=== PATIENT | female | born 1950 | race Caucasian/White ===

== ENCOUNTER 2020-05-04 15:20 | Outpatient (CLI) | payer MEDICARE, SELFPAY ==
--- NOTE | ~2020-05-04 | XR_ITS ---
XR finger 1st RT min 2V DATE: 05/04/2020 16:12 INDICATION: First digit pain and swelling for 3 weeks, worsening TECHNIQUE: 3 views COMPARISON: None FINDINGS: No fracture or dislocation, periosteal reaction or bone destruction. No radiographic soft t issue foreign body or subcutaneous emphysema. IMPRESSION: No significant abnormality Reviewed, dictated and finalized at location A. IMPRESSION: No significant abnormality
== END 2020-05-04 15:21 | disposition home or self-care (01) ==
LOC: CHSIMG 15:25
PROVIDERS: PCP Internal Medicine; Visit Provider Physician Assistant
DX: M79.644 Pain in right finger(s) (principal)
CPT/HCPCS: 73140

== ENCOUNTER 2020-08-13 08:06 | Outpatient (CLI) | payer MEDICARE, SELFPAY ==
--- NOTE | ~2020-08-13 | XR_ITS ---
XR humerus RT DATE: 08/13/2020 08:37 INDICATION: Right arm pain, limited range of motion TECHNIQUE: AP and lateral views COMPARISON: None FINDINGS: There is mild osteoarthritis at the right glenohumeral joint. No fracture or dislocation, periosteal reaction or bone destruction is detected. IMPRESSION: Mild right glenohumeral osteoarthritis Reviewed, dictated and finalized at location A.
--- NOTE | ~2020-08-13 | XR_ITS ---
XR shoulder RT min 2V DATE: 08/13/2020 08:37 INDICATION: Right shoulder pain TECHNIQUE: 5 views COMPARISON: 04/10/2014 right shoulder FINDINGS: Normal alignment at the abdomen clinical information glenohumeral joints. The acromioclavicular joint appears normal. There is mild spurring at the right glenohumeral joint consistent with mild osteoarthritis. No fracture, dislocation, periosteal reaction or bone destruction or abnormal soft tissue calcificati on of the right shoulder. IMPRESSION: Mild glenohumeral osteoarthritis Reviewed, dictated and finalized at location A.
== END 2020-08-13 08:07 | disposition home or self-care (01) ==
LOC: CHSIMG 08:08
PROVIDERS: PCP Internal Medicine; Visit Provider Orthopaedic Surgery
DX: M79.601 Pain in right arm (principal); M25.511 Pain in right shoulder
CPT/HCPCS: 73030; 73060

== ENCOUNTER 2020-12-28 14:11 | Outpatient (CLI) | payer MEDICARE, SELFPAY ==
--- NOTE | ~2020-12-28 | XR_ITS ---
XR hand RT min 3V 12/28/2020 15:57 Indication: Right hand pain Procedure: 3 views right hand Comparison: 04/10/2014 Findings: Osteopenia. Mild osteoarthritis of the first CMC, triscaphe and MCP joints. Mild degenerati ve change of the second MCP joint. No fracture, subluxation or dislocation. No focal soft tissue abno rmality. No foreign bodies. Impression: 1: Mild polyarticular osteoarthritis. Reviewed, dictated and finalized at location A. 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
== END 2020-12-28 14:12 | disposition home or self-care (01) ==
LOC: CHSIMG 14:14
PROVIDERS: PCP Internal Medicine; Visit Provider Internal Medicine
DX: M79.641 Pain in right hand (principal)
CPT/HCPCS: 73130

== ENCOUNTER 2022-04-16 12:47 | Outpatient (CLI) | payer MEDICARE, SELFPAY ==
--- NOTE | ~2022-04-16 | MM_ITS ---
EXAMINATION: MM screening [facility] BI w [place] HISTORY: Screening TECHNIQUE: Craniocaudal and mediolateral oblique 3-D tomosynthesis images were obtained and synthetic 2-D images were generated. CAD analysis was submitted and interpreted. COMPARISON: Comparison to multiple prior studies sequentially, with oldest reviewed study dated 02/2014. BREAST PARENCHYMAL COMPOSITION: There are scattered areas of fibroglandular density. FINDINGS: There is no evidence of suspicious mass, calcification, or architectural distortion to sugg est malignancy in either breast. There has been no suspicious interval change. IMPRESSION: 1. No mammographic evidence of malignancy. 2. Recommend routine screening mammography in one year. BI-RADS Category 1: Negative Reviewed, dictated and finalized at location A.
== END 2022-04-16 12:48 | disposition home or self-care (01) ==
LOC: CHSIMG 12:49
PROVIDERS: PCP Internal Medicine; Visit Provider Internal Medicine
DX: Z12.31 Encounter for screening mammogram for malignant neoplasm of breast (principal)
CPT/HCPCS: 77063; 77067

== ENCOUNTER 2024-08-24 11:53 | Outpatient (CLI) | payer MEDICARE, SELFPAY ==
--- NOTE | ~2024-08-24 | MM_ITS ---
EXAMINATION: MM screening [facility] w [place] HISTORY: Screening TECHNIQUE: Craniocaudal and mediolateral oblique 3-D tomosynthesis images were obtained and synthetic 2-D images were generated. CAD analysis was submitted and interpreted. COMPARISON: Comparison to multiple prior studies sequentially, with oldest reviewed study dated 06/30. BREAST PARENCHYMAL COMPOSITION: Not Dense: The breasts are almost entirely fatty. FINDINGS: There is no evidence of suspicious mass, calcification, or architectural distortion to sugg est malignancy in either breast. There has been no suspicious interval change. IMPRESSION: 1. No mammographic evidence of malignancy. 2. Recommend routine screening mammography in one year. BI-RADS Category 1: Negative Reviewed, dictated and finalized at location B. 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
== END 2024-08-24 11:54 | disposition home or self-care (01) ==
PROVIDERS: PCP Internal Medicine; Visit Provider Internal Medicine
DX: Z12.31 Encounter for screening mammogram for malignant neoplasm of breast (principal)
CPT/HCPCS: 77063; 77067

== ENCOUNTER 2024-11-10 00:48 | Day surgery (SDC) | payer MEDICARE, SELFPAY ==
[2024-10-31 16:04] VITALS: BMI 26.6
--- NOTE | 2024-11-09 15:32 | WPDANESEPPF ---
Anes - Initial Pre Proc Eval Procedure: Operation Date: 11/10/24 12:30 Proposed Procedures p Colonoscopy - Oli Nicolas MD Date/Time: 11/09/24 15:32 Surgeon: Oli Nicolas MD Pre Op Diagnosis: fecal abnormalities Patient Data Age: 74 Gender: F Height: 1.6 m Weight: 68.2 kg Allergies Allergy/AdvReac Type Severity Reaction Status Date / Time risedronate sodium AdvReac Severe flu like Verified 11/10/24 10:49 symptoms Home Medications ?Medication ?Instructions ?Recorded ?Confirmed ?Type calcium carbonate (Calcium 500) 500 mg PO DAILY 08/30/19 10/31/24 History cetirizine 10 mg tablet (Zyrtec) 10 mg PO DAILY 08/30/19 11/10/24 History naproxen 250 mg tablet 250 mg PO BID PRN pain 08/13/20 10/31/24 History fluticasone propionate 50 1 spray intranasal DAILY 04/29/23 11/10/24 History mcg/actuation nasal spray,suspension (Flonase Allergy Relief) atorvastatin 20 mg tablet 20 mg PO DAILY #90 tabs 04/25/24 11/10/24 Rx irbesartan 150 mg tablet 150 mg PO DAILY #90 tabs 04/25/24 11/10/24 Rx levothyroxine 50 mcg tablet 50 mcg PO DAILY #90 tabs 06/13/24 11/10/24 Rx calcium carb-vit D2-magnesium 2 cap PO BID 10/31/24 11/10/24 History capsule coenzyme Q10 100 mg capsule (Co 100 mg PO DAILY 10/31/24 11/10/24 History Q-10) naproxen 200 mg PO DAILY 10/31/24 11/10/24 History Patient hx anesthesia problems: none Family hx anesthesia problems: none Results Review: All pre-operative results and documents have been reviewed as part of the pre-operative evaluation. [facility] Past Medical History Medical History (Updated 11/09/24 @ 15:32 by Saw Brenner DO) Hypothyroidism Hx of polymyalgia rheumatica Hypertension Retinal tear Normal colonoscopy Polymyalgia rheumatica Seasonal allergies High cholesterol Vision abnormalities Adhesive capsulitis of shoulder Arthritis of shoulder region, right, degenerative Family History Family History (Updated 08/05/24 @ 13:31 by FLORINA Hanson) Sibling Family history of mental disorder Hypertension Mother Hypertension Breast cancer Father Patient's father is , Onset Age: 88 gallbladder/colon rupture Other Diabetes mellitus Social History Social History (Updated 08/05/24 @ 13:33 by FLORINA Hanson) Smoking status: Never smoker Second hand tobacco smoke exposure: No Alcohol intake: current Drinks per week: 7 Substance use: never Substance use type: does not use Do You Feel Safe in your Home?: Yes Lack of Transportation: No Lack of Food: Never True Current Housing: I Have Housing Concerned About Future Housing: No Difficulty Paying Gas/Electric Bills: No Difficulty Paying for Meds: No Currently Unemployed: No Education: Associate Degree Difficulty w/ Childcare or Family Care: No Living arrangements: with family Additional living arrangements comments: DISABLED SON AND SPOUSE Occupation/Education: retired 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 Informed Consent: The patient's anesthetic plan and its attendant risks and benefits were discussed with the patient/family/POA. Questions were solicited and answers provided to the satisfaction of the patient/family/POA.
[2024-11-10 10:50] VITALS: BP 136/59; PULSE 67; RESP 18; TEMP 36.2; O2SAT 100; BMI 26.0
[2024-11-10] MEDS: LACTATED RINGERS 1,000 ML 150 ML IV CONT (10:59)
--- NOTE | 2024-11-10 13:07 | P.HP_ITS ---
H&P: HPI History of Present Illness Date/Time: 11/10/24 13:07 Chief Complaint: Positive Cologuard Narrative: the patient is referred for the finding of positive Cologuard test. Her last colonoscopy was 15 years ago, reportedly normal. She is asymptomatic from a GI standpoint at there is no family history of colorectal cancer. Review of Systems Review of Systems: All systems reviewed & are unremarkable except as noted in HPI and below PMFSH Past Medical History Medical History (Updated 11/10/24 @ 13:09 by Oli Nicolas MD) Hypothyroidism Hx of polymyalgia rheumatica Hypertension Retinal tear Normal colonoscopy Polymyalgia rheumatica Seasonal allergies High cholesterol Vision abnormalities Adhesive capsulitis of shoulder Arthritis of shoulder region, right, degenerative Family History Family History (Updated 08/05/24 @ 13:31 by FLORINA Hanson) Sibling Family history of mental disorder Hypertension Mother Hypertension Breast cancer Father Patient's father is , Onset Age: 88 gallbladder/colon rupture Other Diabetes mellitus Social History Social History (Updated 08/05/24 @ 13:33 by FLORINA Hanson) Smoking status: Never smoker Second hand tobacco smoke exposure: No Alcohol intake: current Drinks per week: 7 Substance use: never Substance use type: does not use Do You Feel Safe in your Home?: Yes Lack of Transportation: No Lack of Food: Never True Current Housing: I Have Housing Concerned About Future Housing: No Difficulty Paying Gas/Electric Bills: No Difficulty Paying for Meds: No Currently Unemployed: No Education: Associate Degree Difficulty w/ Childcare or Family Care: No Living arrangements: with family Additional living arrangements comments: DISABLED SON AND SPOUSE Occupation/Education: retired 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, [place], [place] Gender identity (if verbalized by the patient): Female Spiritual care concerns: No Meds Home Medications and Allergies Home Medications ?Medication ?Instructions ?Recorded ?Confirmed ?Type calcium carbonate (Calcium 500) 500 mg PO DAILY 08/30/19 10/31/24 History cetirizine 10 mg tablet (Zyrtec) 10 mg PO DAILY 08/30/19 11/10/24 History naproxen 250 mg tablet 250 mg PO BID PRN pain 08/13/20 10/31/24 History fluticasone propionate 50 1 spray intranasal DAILY 04/29/23 11/10/24 History mcg/actuation nasal spray,suspension (Flonase Allergy Relief) atorvastatin 20 mg tablet 20 mg PO DAILY #90 tabs 04/25/24 11/10/24 Rx irbesartan 150 mg tablet 150 mg PO DAILY #90 tabs 04/25/24 11/10/24 Rx levothyroxine 50 mcg tablet 50 mcg PO DAILY #90 tabs 06/13/24 11/10/24 Rx calcium carb-vit D2-magnesium 2 cap PO BID 10/31/24 11/10/24 History capsule coenzyme Q10 100 mg capsule (Co 100 mg PO DAILY 10/31/24 11/10/24 History Q-10) naproxen 200 mg PO DAILY 10/31/24 11/10/24 History Allergies Allergy/AdvReac Type Severity Reaction Status Date / Time risedronate sodium AdvReac Severe flu like Verified 11/10/24 10:49 symptoms Vital Signs Vital Signs - 24 hr 11/10/24 10:50 Temperature 97.1 F L Pulse Rate 67 Respiratory Rate 18 Blood Pressure 136/59 L Pulse Oximetry 100 Oxygen Delivery Room Air Exam Const: General: cooperative and healthy appearing Resp: Effort & Inspection: normal respiratory effort and able to speak in complete sentences Auscultation: clear to auscultation bilaterally Cardio: Rate: regular rate Rhythm: regular rhythm GI: Inspection: normal to inspection GI Palp: No No hepatosplenomegaly present Auscultation: normal bowel sounds Rectal Exam: deferred Skin: General skin exam: normal color Psych: Appearance: grossly normal Mental Status: mental status grossly normal Assessment and Plan Assessment and plan (1) Positive colorectal cancer screening using Cologuard test: Code(s): R19.5 - Other fecal abnormalities Status: Acute Assessment and Plan: The patient is deemed a good candidate for the procedure. Consent signed. Will proceed.
[2024-11-10 13:38] VITALS: BP 95/49; PULSE 55; RESP 16; O2SAT 95
[2024-11-10 13:48] VITALS: BP 99/53; PULSE 60; RESP 16; O2SAT 98
[2024-11-10 13:58] VITALS: BP 119/58; PULSE 60; RESP 14; O2SAT 99
== END 2024-11-10 14:14 | disposition home or self-care (01) ==
PROVIDERS: PCP Internal Medicine; Visit Provider Internal Medicine Gastroenterology
PROC: 0DJD8ZZ Inspection of Lower Intestinal Tract, Via Natural or Artificial Opening Endoscopic (ICD-10-PCS; CPT 45378; principal; 2024-11-10 12:30)
DX: R19.5 Other fecal abnormalities (principal); K63.5 Polyp of colon
CPT/HCPCS: 45385; 88305; J1596; J2003; J2371; J2704; J7120

== ENCOUNTER 2025-04-12 13:52 | Emergency (ER) | payer MEDICARE, SELFPAY ==
[2025-04-12 13:54] VITALS: BP 168/72; PULSE 63; RESP 18; TEMP 36.6; O2SAT 96
--- NOTE | 2025-04-12 18:44 | ED.EYEPROB ---
HPI - Eye Problem General Chief complaint: Eye Problems Stated complaint: right eye redness Source: patient Mode of arrival: ambulatory Limitations: no limitations History of Present Illness HPI Narrative: patient is a 75-year-old female with a right eye medial aspect redness noted today and here for opinion and evaluation. No change in vision. No pain. MD chief complaint: eye redness ( Right medial) Onset (ago): day(s) ( 1) Onset description: unknown Duration: constant Location: right eye Eye Symptoms: other ( none) Place: home Mechanism: none Severity scale (1-10): 1 If Pain, Quality: other ( none) Context: other ( patient has right eye medial aspect redness for the past day) Associated symptoms: none Treatments Prior to Arrival: none Related Data Home Medications ?Medication ?Instructions ?Recorded ?Confirmed ?Last Taken ?Type calcium carbonate (Calcium 500) 500 mg PO DAILY 08/30/19 10/31/24 Unknown History cetirizine 10 mg tablet (Zyrtec) 10 mg PO DAILY 08/30/19 11/10/24 11/10/24 History naproxen 250 mg tablet 250 mg PO BID PRN pain 08/13/20 10/31/24 Unknown History fluticasone propionate 50 1 spray intranasal DAILY 04/29/23 11/10/24 11/09/24 History mcg/actuation nasal spray,suspension (Flonase Allergy Relief) calcium carb-vit D2-magnesium 2 cap PO BID 10/31/24 11/10/24 11/09/24 History capsule coenzyme Q10 100 mg capsule (Co 100 mg PO DAILY 10/31/24 11/10/24 11/09/24 History Q-10) naproxen 200 mg PO DAILY 10/31/24 11/10/24 11/09/24 History Allergies Allergy/AdvReac Type Severity Reaction Status Date / Time risedronate sodium AdvReac Severe flu like Verified 04/12/25 13:54 symptoms Review of Systems Review of Systems: All systems reviewed & are unremarkable except as noted in HPI and below Constitutional: Constitutional: Reports no additional constitutional complaints Eyes: Eyes: Reports no additional eye complaints ENT: Reports system reviewed and no additional complaints, except as documented Cardiovascular: Cardiovascular: Reports no additional cardiovascular complaints Respiratory: Respiratory: Reports no additional respiratory complaints Gastrointestinal: Gastrointestinal: Reports no additional gastrointestinal complaints Genitourinary: Genitourinary: Reports no additional female genitourinary complaints Musculoskeletal: Musculoskeletal: Reports no additional musculoskeletal complaints Integumentary/Breasts: Skin/Breast: Reports system reviewed and no additional complaints, except as docu Neurologic: Reports system reviewed and no additional complaints, except as documented Psychiatric: Psychiatric: Reports no additional psychiatric complaints Endocrine: Endocrine: Reports no additional endocrine complaints Hematologic/Lymphatic: Hematologic/Lymphatic: Reports no additional hematologic/lymphatic complaints Allergic/Immunologic: Allergic/Immunologic: Reports no additional allergic/immunologic complaints PMFSH Past Medical History Medical History Hypothyroidism Hx of polymyalgia rheumatica Hypertension Retinal tear Normal colonoscopy Polymyalgia rheumatica Seasonal allergies High cholesterol Vision abnormalities Adhesive capsulitis of shoulder Arthritis of shoulder region, right, degenerative Family History Family History Sibling Family history of mental disorder Hypertension Mother Hypertension Breast cancer Father Patient's father is , Onset Age: 88 gallbladder/colon rupture Other Diabetes mellitus Social History Social History Smoking status: Never smoker Second hand tobacco smoke exposure: No Alcohol intake: current Drinks per week: 7 Substance use: never Substance use type: does not use Do You Feel Safe in your Home?: Yes Lack of Transportation: No Lack of Food: Never True Current Housing: I Have Housing Concerned About Future Housing: No Difficulty Paying Gas/Electric Bills: No Difficulty Paying for Meds: No Currently Unemployed: No Education: Associate Degree Difficulty w/ Childcare or Family Care: No Living arrangements: with family Additional living arrangements comments: DISABLED SON AND SPOUSE Occupation/Education: retired Additional occupation/education comments: Registered [place] Gender identity (if verbalized by the patient): Female Spiritual care concerns: No Exam Const: General: healthy appearing Nutritional Appearance: well nourished Orientation/consciousness: patient oriented x3 HENMT: Head: normal to inspection Ears: external ears normal Face/Nose/Sinus: Normal external nose present Eyes: Conjunctivae: abnormal conjunctivae and conjunctival abnormality ( right eye medial aspect has injection of the sclera/ conjunctiva only) Pupils: Equal, round and reactive pupils present EOM: EOMs intact bilaterally Direct Ophthalmoscopy: no photophobia Neck: Neck: normal visual inspection Chest: Chest palpation & inspection: normal inspection of the chest Resp: Effort & Inspection: normal respiratory effort and not labored Auscultation: clear to auscultation bilaterally and no crackles Cardio: Rate: regular rate Rhythm: regular rhythm Heart sounds: no murmurs Neuro: General: patient oriented x3, moves all extremities, no meningeal signs, no focal motor deficits and CN's II-XI intact bilaterally Cranial nerves: Yes Nystagmus not present Speech: normal speech Gait exam (Neuro): Normal gait present Extrem: General: normal to inspection Psych: Mental Status: mental status grossly normal Affect: normal affect Attitude: cooperative Course Vital Signs Vital signs: Vital Signs Temperature 36.6 C 04/12/25 13:54 Pulse Rate 63 04/12/25 13:54 Respiratory Rate 18 04/12/25 13:54 Blood Pressure 168/72 H 04/12/25 13:54 Pulse Oximetry 96 04/12/25 13:54 Oxygen Delivery Room Air 04/12/25 13:54 Temperature 36.6 C 04/12/25 13:54 Pulse Rate 63 04/12/25 13:54 Respiratory Rate 18 04/12/25 13:54 Blood Pressure 168/72 H 04/12/25 13:54 Pulse Oximetry 96 04/12/25 13:54 Oxygen Delivery Room Air 04/12/25 13:54 MDM - Eye Problem MDM Narrative Medical decision making narrative: patient is a 75-year-old female with a right eye medial aspect redness with unclear origin. Reassurance given that this is subconjunctival conjunctiva hemorrhage. Discharge Plan Discharge Clinical Impression: REEMA (subconjunctival hemorrhage) Qualifiers: Laterality: left Qualified Code(s): H11.32 - Conjunctival hemorrhage, left eye Patient Disposition: Home Condition: Stable Instructions: Hemorragia subconjuntival (ED) Patient Language: Mongolian Prescriptions: No Action naproxen 250 mg tablet 250 mg PO BID PRN (Reason: pain) fluticasone propionate [Flonase Allergy Relief] 50 mcg/actuation spray,suspension 1 spray intranasal DAILY Rx Instructions: administer into each nostril calcium carb-vit D2-magnesium Capsule 2 cap PO BID naproxen 200 mg PO DAILY coenzyme Q10 [Co Q-10] 100 mg capsule 100 mg PO DAILY cetirizine [Zyrtec] 10 mg tablet 10 mg PO DAILY calcium carbonate [Calcium 500] 500 mg calcium (1,250 mg) tablet 500 mg PO DAILY atorvastatin 20 mg tablet 20 mg PO DAILY Qty: 90 3RF irbesartan 150 mg tablet 150 mg PO DAILY Qty: 90 3RF levothyroxine 50 mcg tablet 50 mcg PO DAILY Qty: 90 3RF Follow-up/Referrals: Haider Alba DO [Primary Care Provider] - Time of Disposition: 14:51
== END 2025-04-12 14:53 | disposition home or self-care (01) ==
PROVIDERS: Emergency Provider Emergency Medicine; PCP Internal Medicine
DX: H11.32 Conjunctival hemorrhage, left eye (principal); E03.9 Hypothyroidism, unspecified; I10 Essential (primary) hypertension
CPT/HCPCS: 99283

== ENCOUNTER 2025-08-25 15:43 | Outpatient (CLI) | payer MEDICARE, SELFPAY ==
--- NOTE | ~2025-08-25 | XR_ITS ---
EXAMINATION: XR ankle LT 2V DATE: 08/25/2025 16:07 INDICATION: Medial left ankle pain post crush injury 6 months prior TECHNIQUE: Anteroposterior, oblique, mortise, and lateral views of the left ankle were obtained. COMPARISON: None. FINDINGS: Bone alignment is normal. No fracture. Profiled joint spaces are normal. Moderate-sized plantar calcaneal spur. No cortical erosions or periosteal reaction. Asymmetric mild soft tissue about the medial malleolus. No evident ankle joint effusion. IMPRESSION: 1. No acute osseous abnormality. Reviewed, dictated and finalized at location A. 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
--- OUTSIDE RECORDS SUMMARY | 2025-08-25 15:46 | XMS_ITS | Clinical Summary ---
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 Gender Identity Not on file Sexual Orientation Not on file Plan of Treatment Health Maintenance Due Date Last Done Comments Colorectal Cancer Screening Colonoscopy (10 Years) 1951 Hepatitis C 1969 DTaP, Tdap and Td Vaccines ( 1 - Tdap) 1970 Mammogram Screening 1991 Pneumococcal Vaccine: 50+ Ye ars (1 of 1 - PCV) 2001 Zoster Vaccines (1 of 2) 2001 Dexa Scan (General) 2016 COVID-19 Vaccine ( - 2024-2 6 season) 2025 Influenza Adult (#1) 2025 RSV Immunization or 60+ Years (1 - 1-dose 75+ series) 2026 Hepatitis A Vaccines Aged Out No long er eligible based on patient's age to complete this topic Meningococcal B Vaccine Aged Out No l onger eligible based on patient's age to complete this topic Meningococcal Vaccine Aged Out No oni capri eligible based on patient's age to complete this topic RSV Immunizations Under 20 Months Aged Out No longer eligible based on patient's age to complete this topic
== END 2025-08-25 15:44 | disposition home or self-care (01) ==
LOC: CHSIMG 15:44
PROVIDERS: PCP Internal Medicine; Visit Provider Internal Medicine
DX: M25.572 Pain in left ankle and joints of left foot (principal)
CPT/HCPCS: 73600